=== PATIENT | male | born 1985 | race Caucasian/White ===

== ENCOUNTER 2025-01-09 14:42 | Emergency (ER) | payer OTHER ==
[2025-01-09] MEDS ORDERED: Lidocaine 1% w/Epinephrine 1:200K 30 ML VIAL ONE (15:28)
[2025-01-09] MEDS ORDERED: Acetaminophen 325 MG TAB ONE (15:29)
[2025-01-09] MEDS ORDERED: Boostrix 0.5 ML (Tdap) VIAL (>/=7 yrs of age) ONE (15:29)
== END 2025-01-09 17:00 ==
LOC: CSHERS 14:42 → EEVIPCON 14:42 → CSHERS 17:00
DX: S01.01XA Laceration without foreign body of scalp, initial encounter (principal); M54.2 Cervicalgia; Z23 Encounter for immunization; Y04.8XXA Assault by other bodily force, initial encounter; Y92.149 Unspecified place in prison as the place of occurrence of the external cause
CPT/HCPCS: 12002; 70450; 72125; 90471; 90715